=== PATIENT | female | born 1940 | race Caucasian/White ===

== ENCOUNTER → 2017-12-11 | Outpatient (CLI) | payer MEDICARE ==
[~2017-12-11] MED LIST: ACET325 PO; ALBU90OI INH; AMLO5 PO; ASCO500 PO; ASPI81CH PO; ATOR10 PO; BUDE200IP INH; Brovana15 MCG/2 M INH; CALCAVITDA PO; LOSA50 PO; MONT10T PO; PARO20 PO; TIOT18 INH
== END | disposition home or self-care (01) ==
LOC: LAB SHORT 10:30 → LAB EV 10:30
DX: N39.0 Urinary tract infection, site not specified (principal)
CPT/HCPCS: 87077; 87086; 87186

== ENCOUNTER 2019-08-08 04:56 | Inpatient (IN) | payer MEDICARE ==
[~2019-08-08] VITALS: Ht 180.3 cm; Wt 53.2 kg
[2019-08-08 05:39] LABS: BASOPHILS ABSOLUTE AUTO 0.06 K/mm3 (0.00-0.23); BASOPHILS PERCENT AUTO 1 % (0-2); EOSINOPHILS ABSOLUTE AUTO 0.96 K/mm3 (0.00-0.68); EOSINOPHILS PERCENT AUTO 12 % (0-6); Hematocrit 40.8 % (33.0-51.0); Hemoglobin 13.9 g/dL (11.5-16.0); IMMATURE GRAN ABSOLUTE AUTO 0.05 K/mm3 (0.00-0.10); IMMATURE GRAN PERCENT AUTO 1 % (0-1); LYMPHOCYTES ABSOLUTE AUTO 1.26 K/mm3 (0.84-5.20); LYMPHOCYTES PERCENT AUTO 16 % (21-46); MONOCYTES ABSOLUTE AUTO 0.82 K/mm3 (0.16-1.47); MONOCYTES PERCENT AUTO 11 % (4-13); Mean Corpuscular HGB 33.3 pg (26.0-34.0); Mean Corpuscular HGB Conc 34.1 g/dL (31.5-36.5); Mean Corpuscular Volume 98 fL (80-100); Mean Platelet Volume 10.7 fL (9.1-12.4); NEUTROPHILS ABSOLUTE AUTO 4.66 K/mm3 (1.96-9.15); NEUTROPHILS PERCENT AUTO 60 % (41-73); Platelet Count 289 K/mm3 (150-400); RDW Coefficient Variation 13.2 % (11.7-14.2); RDW Standard Deviation 47.7 fL (35.1-46.3); Red Blood Cell Count 4.18 M/mm3 (3.80-5.20); White Blood Cell Count 7.81 K/mm3 (4.00-11.30)
[2019-08-08 05:52] LABS: Alanine Aminotransfer (ALT/SGP 38 U/L (12-78); Albumin, Blood 3.8 g/dL (3.4-5.0); Albumin/Globulin Ratio 1.2 (0.8-1.8); Alk Phos 91 U/L (50-136); Anion Gap 7 mmol/L (6-16); Aspartate Aminotrans (AST/SGOT 51 U/L (12-37); Bilirubin, Total 0.4 mg/dL (0.1-1.0); Blood Urea Nitrogen 11 mg/dL (8-24); Bun/Creatinine Ratio 21.6 (12.0-20.0); CO2, Blood 28 mmol/L (21-32); Calcium, Blood 9.1 mg/dL (8.5-10.1); Chloride, Blood 102 mmol/L (98-108); Creatinine, Blood 0.51 mg/dL (0.40-1.00); Globulin, Blood 3.3 g/dL (2.2-4.0); Glomerular Filtration Rate >60 (60-); Glucose, Blood 130 mg/dL (70-99); Magnesium, Blood 1.8 mg/dL (1.6-2.4); Sodium, Blood 137 mmol/L (136-145); Total Protein, Blood 7.1 g/dL (6.4-8.2); Troponin I <0.015 ng/mL (0.000-0.040)
[2019-08-08] MEDS ORDERED: Atrovent Inha12.9 GM INH (07:00)
[2019-08-08] MEDS ORDERED: BUSP5 PO (07:00)
[2019-08-08] MEDS ORDERED: LUMIGAN2.5 ML BOTHEYES (07:01)
[2019-08-08] MEDS ORDERED: CARV3.125 PO (07:01)
[2019-08-08] MEDS ORDERED: COSOPT PF EYE1 EACH BOTHEYES (07:01)
--- NOTE | 2019-08-08 07:11 | NUR ---
ADMIT NOTE: ASSUMED CARE OF PT @ 0635, RECEVIED REPORT FROM ERIC BERGER. PT ARRIVED TO UNIT VIA STRETCHER. PT WAS ON RA ON ARRIVAL, SPO2 WAS 86%, PT WAS THEN PLACED ON 2L OF O2 VIA NC. PT IS IN AFIB, WITH HR IN THE 80'S.PT HAS A PACEMAKER (L CHEST) PT IS ALERT AND ORIENTEDX3, ABLE TO ANSWER QUESTIONS APPROPRIATLY. PT WAS ORIENTED TO THE ROOM. REPORT GIVEN TO CECILIA BERGER. BED AT LOWEST LEVEL, CALL LIGHT WITHIN REACH
--- NOTE | 2019-08-08 08:00 | NUR ---
ASSUMED CARE PT IS LYING IN BED ON 2L NC. SHE IS ALERT AND ORIENTED X 4. SHE HAS ECTOPY - BIGEMINY RUNS, PVCs, AND IT APPEARS TO HAVE A BBB. SHE HAS A PACEMAKER, BACKUP RATE IS 40. HER SATS ARE HIGH 90'S. SHE DENIES PAIN, SOB, AND NAUSEA. BED IS LOW AND LOCKED. CALL LIGHT WITHIN REACH.
[2019-08-08] MEDS ORDERED: LOSA25 PO (13:47)
[2019-08-08] MEDS ORDERED: BRIMONIDINE TART5 M2 BOTHEYES (13:50)
--- NOTE | 2019-08-08 19:14 | NUR ---
SHIFT SUMMARY PT REMAINS ALERT AND ORIENTED X 4. SHE GOT OFF OXYGEN TODAY, AND IS SATING MID 90'S. SHE IS SLIGHTLY HYPERTENSIVE, BUT STABLE (SEE VS). SHE HAS BEEN EDUCATED ON THE IS, AND FLUTTER VALVE WELL PURSED LIP BREATHING. SHE DEMONSTRATED UNDERSTANDING. HEART HAS BEEN ACTING UP, WITH FREQUENT ECTOPY - OFTEN BIGEMINY PVCs. SHE HAS A RIGHT BUNDLE BRANCH BLOCK UNDERLYING. HER PACEMAKER HAS A BACKUP RATE OF 40 (STATES PT) BUT HAS NOT PACED ONCE, PT'S HR REMAINS IN 90'S. THE SITE OF HER PACEMAKER LOOKS GOOD FROM AN EXTERNAL VIEW. NOT MUCH OF AN APPETITE DUE TO DYSPNEA WITH EXERTION. SHE GOT UP IN ROOM TO USE TOILET AND TO SIT ON CHAIR, AND WAS QUITE DYSPNEIC AFTER JUST A FEW STEPS. HOWEVER, SHE MAINTAINS SATS IN 90'S. BED LOW AND LOCKED. CALL LIGHT WITHIN REACH.
--- NOTE | 2019-08-08 19:30 | NUR ---
INITAL SHIFT ASSESSMENT PT IS ALERT IN ROOM SITTING UP IN BED. APPEARS TO BE COMFORTABLE NOT SOB AT REST. SHE IS DOING PURSED LIP BREATHING AT TIMES WHILE THIS RN IS IN ROOM WITH HER. VITALS ARE STABLE. HER BP HOWEVER IS ELEVATED. WILL CALL MD AND HAVE HER HOME MEDS REVIEWED AND RE-STARTED. PT ON RA. PT REQUESTED TO GET UP TO TOILET AT THIS TIME. SHE WAS ABLE TO WALK WITH MINIMAL ASSISTANCE FROM THIS RN. VERY SOB UPON RETURNING TO BED. 1L N/C REPLACED AND PT RECOVERED WITHIN 5 MIN OXYGEN WAS THEN REMOVED. REVIEWED ALL HOME MEDS WITH PT WHILE SHE WAS RECOVERYING. PT HAS A PACEMAKER IN PLACE TO WHICH SHE STATES HAS A PACER RATE OF 40. PT STATES HEART IS VERY IRREGULAR. PT STATES SHE DOES NOT BELIEVE THER IS A HIGH RATE PACING. SHE ALSO STATES IT IS NOT A DEFIBRILATOR. OVERALL PT IS VERY PLESANT AND COOPERTIVE WITH HER CARE. CALL LIGHT IN REACH. WILL CON'T TO MONITOR AND KEEP PT SAFE T/O REMIANDER OF SHIFT.
[2019-08-08 22:39] LABS: Adenovirus Not Detected (NOT DETECT); Bordetella pertussis Not Detected (NOT DETECT); Chlamydophila pneumoniae Not Detected (NOT DETECT); Coronavirus 229E Not Detected (NOT DETECT); Coronavirus HKU1 Not Detected (NOT DETECT); Coronavirus NL63 Not Detected (NOT DETECT); Coronavirus OC43 Not Detected (NOT DETECT); Human Metapneumovirus Not Detected (NOT DETECT); Human Rhinovirus/Enterovirus Not Detected (NOT DETECT); Influenza A/2009-H1 Not Detected (NOT DETECT); Influenza A/H1 Not Detected (NOT DETECT); Influenza A/H3 Not Detected (NOT DETECT); Influenza B Not Detected (NOT DETECT); Mycoplasma pneumoniae Not Detected (NOT DETECT); Parainfluenza Virus 1 Not Detected (NOT DETECT); Parainfluenza Virus 2 Not Detected (NOT DETECT); Parainfluenza Virus 3 Not Detected (NOT DETECT); Parainfluenza Virus 4 Not Detected (NOT DETECT); Respiratory Syncytial Virus Not Detected (NOT DETECT)
--- NOTE | 2019-08-08 23:37 | NUR ---
SHIFT UPDATE PT CON'T TO BE STABLE. SHE LOOKS VERY CALM AND NO SOB NOTED WHILE RESTING IN BED WATCHING TV. SHE WAS GIVEN HER INHALER AND SOLUMEDROL AT THIS TIME. VITALS ARE STABLE. WILL CON'T TO MONITOR PT AND KEEP SAFE.
[2019-08-09 04:48] LABS: Hematocrit 42.9 % (33.0-51.0); Hemoglobin 14.3 g/dL (11.5-16.0); Mean Corpuscular HGB 32.6 pg (26.0-34.0); Mean Corpuscular HGB Conc 33.3 g/dL (31.5-36.5); Mean Corpuscular Volume 98 fL (80-100); Mean Platelet Volume 10.5 fL (9.1-12.4); Platelet Count 286 K/mm3 (150-400); RDW Coefficient Variation 13.2 % (11.7-14.2); RDW Standard Deviation 47.7 fL (35.1-46.3); Red Blood Cell Count 4.39 M/mm3 (3.80-5.20)
[2019-08-09 05:05] LABS: Alanine Aminotransfer (ALT/SGP 36 U/L (12-78); Albumin, Blood 4.1 g/dL (3.4-5.0); Albumin/Globulin Ratio 1.1 (0.8-1.8); Alk Phos 83 U/L (50-136); Anion Gap 7 mmol/L (6-16); Aspartate Aminotrans (AST/SGOT 30 U/L (12-37); Bilirubin, Total 0.5 mg/dL (0.1-1.0); Blood Urea Nitrogen 11 mg/dL (8-24); Bun/Creatinine Ratio 25.8 (12.0-20.0); CO2, Blood 28 mmol/L (21-32); Calcium, Blood 9.4 mg/dL (8.5-10.1); Chloride, Blood 99 mmol/L (98-108); Creatinine, Blood 0.43 mg/dL (0.40-1.00); Globulin, Blood 3.8 g/dL (2.2-4.0); Glomerular Filtration Rate >60 (60-); Glucose, Blood 124 mg/dL (70-99); Potassium, Blood 4.1 mmol/L (3.5-5.5); Sodium, Blood 134 mmol/L (136-145); Total Protein, Blood 7.9 g/dL (6.4-8.2)
--- NOTE | 2019-08-09 05:55 | NUR ---
SHIFT SUMMARY PT HAS DONE WELL THOUGH THE NIGHT. SHE RESTED FOR A FEW HOURS. THIS AM SHE WAS ABLE TO GET UP TO THE TOILET AGAIN WITH MINIMAL ASSISTANCE. SHE DID GET SOB WITH EXERTION. 1L N/C WAS PLACED ON HER WHILE SHE WAS UP. WHEN SHE RETURNED TO BED SHE RECOVERED QUICKLY AND THEN THE OXYGEN WAS REMOVED. VITALS ARE STABLE NO CHANGES FROM BASELINE. HER BP HOWEVER DOES CON'T TO BE ELEVATED. CALL LIGHT IN REACH BED IN LOW POSITION. WILL CON'T TO MONITOR PT TILL REPORT TO ONCOMING RN.
--- NOTE | 2019-08-09 08:30 | NUR ---
CARE ASSUMED CARE AND REPORT ASSUMED FROM JASMINE BERGER. PT SITTING UPRIGHT IN BED WATCHING TV AND TALKING ON HER CELLPHONE. DENIES PAIN THIS AM. NEEDS 1 PERSON ASSIST TO TOILET SHE IS UNSTEADY ON HER FEET. VOIDED 550 ML THIS AM; BREIF CHANGED. WHEN UP, PT EASILY BECOMES SOB. WEARING 1L NC AND TRIPOD BREATHING. EXPIRATORY WHEEZES IN ALL EDGAR. HR 100, BBB. BP SLIGHTLY ELEVATED; HOME BP MEDS GIVEN. IV SALINE LOCKED. WILL CONTINUE TO MONITOR.
--- NOTE | 2019-08-09 11:41 | NUR ---
REASSESSMENT PT SITTING UPRIGHT IN BED. STATES SHE OCCASSIONALLY GETS CENTRAL CHEST HEAVINESS WHEN SHE HAS DIFFICULTY BREATHING. STEROIDS ADJUSTED PER MD. NO RHYTHM CHANGE; REMAINS IN BBB; HR 100. BP SLIGHTLY ELEVATED; WILL MONITOR. SPO2 94% ON RA AT THIS TIME. PT ABLE TO HAVE CONVERSATION. WHEEZING REMAINS IN ALL EDGAR. WILL CONTINUE TO MONITOR.
--- NOTE | 2019-08-09 17:18 | NUR ---
SHIFT SUMMARY PT HAS BEEN CALM AND COOPERATIVE ENTIRE SHIFT. SHE EASILY BECOMES DYSPNIC WITH EXERTION BUT NEEDS OXYGEN FOR JUST A FEW MINUTES UNTIL SHE RECOVERS TO BASELINE. HAS REMAINED IN NSR WITH BBB, HR 90-100. IV STEROIDS TITRATED DOWN TODAY. FAMILY UPDATED. PT RECEIVED SHOWER AND LINEN CHANGE. WILL GIVE BEDSIDE, HANDOFF REPORT TO MARNIE RN.
--- NOTE | 2019-08-09 20:45 | NUR ---
ASSUMPTION OF CARE: PT AWAKE, A&O. NO COMPLAINTS OF PAIN. PT HAS A BBB WITH OCC PVCS. HAS PACER. PT STATES BACK UP RATE IS 40. LUNG SOUNDS ARE CLEAR, PT STATES SHE DOES HAVE SOME SOB BUT IT IS MILD. DYSPNEA ON EXERTION. PER DAYSHIFT PT DOES WELL IF SHE IS PUT ON 2L NC DURING AMBULATION. RFA PIV IS PATENT AND SL. PT HAS NO COMPLAINTS AT THIS TIME. WILL CONTINUE TO MONITOR.
[2019-08-10 03:48] LABS: BASOPHILS ABSOLUTE AUTO 0.01 K/mm3 (0.00-0.23); BASOPHILS PERCENT AUTO 0 % (0-2); EOSINOPHILS PERCENT AUTO 0 % (0-6); Hematocrit 37.5 % (33.0-51.0); Hemoglobin 12.9 g/dL (11.5-16.0); IMMATURE GRAN PERCENT AUTO 1 % (0-1); LYMPHOCYTES ABSOLUTE AUTO 0.58 K/mm3 (0.84-5.20); LYMPHOCYTES PERCENT AUTO 4 % (21-46); MONOCYTES ABSOLUTE AUTO 0.39 K/mm3 (0.16-1.47); MONOCYTES PERCENT AUTO 3 % (4-13); Mean Corpuscular HGB 33.2 pg (26.0-34.0); Mean Corpuscular HGB Conc 34.4 g/dL (31.5-36.5); Mean Corpuscular Volume 96 fL (80-100); Mean Platelet Volume 10.4 fL (9.1-12.4); NEUTROPHILS PERCENT AUTO 92 % (41-73); Platelet Count 273 K/mm3 (150-400); RDW Coefficient Variation 13.2 % (11.7-14.2); RDW Standard Deviation 46.3 fL (35.1-46.3); Red Blood Cell Count 3.89 M/mm3 (3.80-5.20); White Blood Cell Count 13.48 K/mm3 (4.00-11.30)
[2019-08-10 04:03] LABS: Anion Gap 7 mmol/L (6-16); Blood Urea Nitrogen 13 mg/dL (8-24); Bun/Creatinine Ratio 25.4 (12.0-20.0); CO2, Blood 29 mmol/L (21-32); Calcium, Blood 8.9 mg/dL (8.5-10.1); Chloride, Blood 95 mmol/L (98-108); Creatinine, Blood 0.51 mg/dL (0.40-1.00); Glomerular Filtration Rate >60 (60-); Glucose, Blood 130 mg/dL (70-99); Potassium, Blood 3.6 mmol/L (3.5-5.5); Sodium, Blood 131 mmol/L (136-145)
--- NOTE | 2019-08-10 05:54 | NUR ---
SHIFT SUMMARY: PT IS A&O. SLEPT PART OF SHIFT. NO COMPLAINTS OF PAIN. AFEBRILE. IN BBB WITH OCC PVCS. PT IS PACED WITH A BACKUP RATE OF 40. SBP IN THE 140S, HR IN THE 90S. LUNG SOUNDS ARE CLEAR, SPO2 >90% ON RA. PT DOES BECOME DYSPNEIC WITH EXERTION AND REQUIRES SUPPLEMENTAL O2 VIA NC WHEN SHE IS UP IN ROOM. SHE DOES RECOVER QUICKLY. SKIN IS INTACT. PIV TO RFA PATENT AND SL. WILL PASS REPORT TO ONCOMING SHIFT
--- NOTE | 2019-08-10 09:17 | NUR ---
CARE ASSUMED CARE AND REPORT ASSUMED FROM NICOLAS BERGER. PT SITTING UPRIGHT IN BED. DENIES PAIN. VSS. CURRENTLY IN SR, BBB, HR 100. BP WNL. SPO2 92-95% ON RA. NEEDING TO WEAR 1-2L NC DURING ACTIVITY OR FOLLOWING ACTIVITY FOR SHORT RECOVERY TIME. PT UP TO CHAIR AND TOILET WITH 1 PERSON ASSIST THIS AM. DENIES NAUSEA. LUNG SOUNDS CLEAR THIS AM. AFEBRILE. PERIPHERAL IV REMOVED AND POWER GLIDE BEING INSERTED AT THIS TIME. WILL CONTINUE TO MONITOR.
--- NOTE | 2019-08-10 11:39 | NUR ---
REASSESSMENT PT SITTING UP IN BED WATCHING TV. UP TO TOILET WITH MINIMAL 1 ASSIST. DENIES PAIN AT THIS TIME. VSS. REMAINS IN BBB, HR 80S. BP SLIGHTLY ELEVATED; WILL MONITOR. SPO2 92% ON RA; LUNG SOUNDS CLEAR. PT CONTINUES TO USE 2L NEEDED. AFEBRILE. WILL CONTINUE TO MONITOR.
--- NOTE | 2019-08-10 18:36 | NUR ---
SHIFT SUMMARY VSS ENTIRE SHIFT. PT UP TO CHAIR FOR BREAKFAST AND THEN TO TOILET WITH 1 STANDBY ASSIST. USES 2L NC FOLLOWING ACTIVITY TO IMPROVE HER EXERTIONAL DYSPNEA. PT HAS BEEN IN BBB DURING SHIFT, HR 90-100. STEROIDS TAPERED THIS MORNING. WILL GIVE BEDSIDE, HANDOFF REPORT TO NOC RN.
--- NOTE | 2019-08-10 19:00 | NUR ---
ASSUMED CARE ASSUMED CARE OF PATIENT. AWAKE AND ALERT. COOPERATIVE WITH CARE. REPOSITIONS SELF IN BED WITHOUT DIFFICULTY. DYSPNEA NOTED WITH TALKING/EXERTION. TACHYPNEIC WITH EXERTION. RA SATS STABLE. PT INTERMITTENTLY USES O2 WHEN SOB/DYSPNEIC. DENIES C/O PAIN OR NAUSEA AT THIS TIME. MONITOR SHOWS NSR, RATE 90s. UP TO BR TO VOID WITH STANDBY ASSIST. POWERGLIDE NOTED TO TONI. SEE SHIFT ASSESSMENT FOR FULL ASSESSMENT.
[2019-08-11 04:35] LABS: BASOPHILS ABSOLUTE AUTO 0.02 K/mm3 (0.00-0.23); BASOPHILS PERCENT AUTO 0 % (0-2); EOSINOPHILS PERCENT AUTO 0 % (0-6); Hematocrit 40.9 % (33.0-51.0); Hemoglobin 13.9 g/dL (11.5-16.0); IMMATURE GRAN ABSOLUTE AUTO 0.12 K/mm3 (0.00-0.10); IMMATURE GRAN PERCENT AUTO 1 % (0-1); LYMPHOCYTES ABSOLUTE AUTO 0.85 K/mm3 (0.84-5.20); LYMPHOCYTES PERCENT AUTO 6 % (21-46); MONOCYTES ABSOLUTE AUTO 0.72 K/mm3 (0.16-1.47); MONOCYTES PERCENT AUTO 5 % (4-13); Mean Corpuscular Volume 97 fL (80-100); Mean Platelet Volume 10.7 fL (9.1-12.4); NEUTROPHILS ABSOLUTE AUTO 12.92 K/mm3 (1.96-9.15); NEUTROPHILS PERCENT AUTO 88 % (41-73); Platelet Count 320 K/mm3 (150-400); RDW Coefficient Variation 13.3 % (11.7-14.2); RDW Standard Deviation 47.3 fL (35.1-46.3); Red Blood Cell Count 4.21 M/mm3 (3.80-5.20); White Blood Cell Count 14.63 K/mm3 (4.00-11.30)
[2019-08-11 04:55] LABS: Anion Gap 8 mmol/L (6-16); Blood Urea Nitrogen 13 mg/dL (8-24); Bun/Creatinine Ratio 24.3 (12.0-20.0); CO2, Blood 31 mmol/L (21-32); Calcium, Blood 9.2 mg/dL (8.5-10.1); Chloride, Blood 94 mmol/L (98-108); Creatinine, Blood 0.54 mg/dL (0.40-1.00); Glomerular Filtration Rate >60 (60-); Glucose, Blood 125 mg/dL (70-99); Potassium, Blood 3.5 mmol/L (3.5-5.5); Sodium, Blood 133 mmol/L (136-145)
--- NOTE | 2019-08-11 06:58 | NUR ---
SHIFT SUMMARY NO ACUTE CHANGES DURING NOC. SLEPT WELL WHEN UNDISTURBED. UP TO BATHROOM WITH STAND-BY ASSIST. ON RA WHEN AWAKE AND THEN 2L NC WHEN ASLEEP. SATS STABLE T/O NOC. SOB WITH MINIMAL EXERTION. USING INCENTIVE SPIROMETER AND FLUTTER VALVE. OCCASIONAL LOOSE COUGH. VSS. VOIDING WITHOUT DIFFICULTY. DENIES C/O PAIN OR DISCOMFORT. WILL REPORT TO DAY SHIFT RN WHEN AVAILABLE.
--- NOTE | 2019-08-11 08:30 | NUR ---
ASSESSMENT- PT AWAKE, ALERT, COOPERATIVE. DENIES ANY PAIN. STATES DOES FEEL BREATHING IS "TIGHTER" TODAY. LUNGS WITH FEW WHEEZES LEFT SIDE. OXYGEN SATURATIONS STABLE ON ROOM AIR. USING PEP VALVE FOR EXERCISE. LEFT UA MIDLINE CATH INTACT. ABLE TO POSITION SELF IN BED, MOVES WELL. DOES BECOME DYSPNEIC WITH ANY EXERTION.
--- NOTE | 2019-08-11 13:30 | NUR ---
VSS. APPETITE MINIMAL. STATES BREATHING HAS IMPROVED. ON ROOM AIR, OXYGEN SATURATIONS STABLE.
--- NOTE | 2019-08-11 18:21 | NUR ---
PT UP TO CHAIR, OXYGEN SATURATIONS STABLE AT REST, DOES STILL BECOME DYSPNEIC WITH ANY EXERTION, OXYGEN SATURATIONS REMAINED AT 94%. SR. PCU STATUS, REPORT CALLED TO JOHAN BERGER.
--- NOTE | 2019-08-11 23:36 | NUR ---
Assumed Care Report from CELINE Fermin and care assumed by this RN at approx 1900. Pt lying in bed, conversing appropriately, breathing is even and unlabored at rest. Pt able to speak in full sentences on RA without becoming dyspneic. Pt requires 1L NC with ambulation and sleep d/t desaturations per report. See shift assessment for detailed systems assessment. pt is fully alert and oriented, conversing appropriately, expresses needs with call light, compliant with care. VSS. No acute concerns to note at start of shift. Will continue to monitor.
[2019-08-12 04:43] LABS: BASOPHILS ABSOLUTE AUTO 0.02 K/mm3 (0.00-0.23); BASOPHILS PERCENT AUTO 0 % (0-2); EOSINOPHILS ABSOLUTE AUTO 0.01 K/mm3 (0.00-0.68); EOSINOPHILS PERCENT AUTO 0 % (0-6); Hematocrit 38.3 % (33.0-51.0); Hemoglobin 13.3 g/dL (11.5-16.0); IMMATURE GRAN ABSOLUTE AUTO 0.09 K/mm3 (0.00-0.10); IMMATURE GRAN PERCENT AUTO 1 % (0-1); LYMPHOCYTES ABSOLUTE AUTO 1.43 K/mm3 (0.84-5.20); LYMPHOCYTES PERCENT AUTO 12 % (21-46); MONOCYTES ABSOLUTE AUTO 1.44 K/mm3 (0.16-1.47); MONOCYTES PERCENT AUTO 12 % (4-13); Mean Corpuscular HGB 33.1 pg (26.0-34.0); Mean Corpuscular HGB Conc 34.7 g/dL (31.5-36.5); Mean Corpuscular Volume 95 fL (80-100); NEUTROPHILS ABSOLUTE AUTO 8.93 K/mm3 (1.96-9.15); NEUTROPHILS PERCENT AUTO 75 % (41-73); Platelet Count 276 K/mm3 (150-400); RDW Coefficient Variation 12.9 % (11.7-14.2); RDW Standard Deviation 45.7 fL (35.1-46.3); Red Blood Cell Count 4.02 M/mm3 (3.80-5.20); White Blood Cell Count 11.92 K/mm3 (4.00-11.30)
--- NOTE | 2019-08-12 04:54 | NUR ---
Shift Summary Pt with no acute changes overnight. Breathing is even and unlabored on RA at rest. Pt becomes quite dyspneic with any exertion - desaturations noted down to low 80's with ambulation to bathroom and respiration rate increases to 25-28 with pursed lip breathing. it takes pt approx 2-4 minutes to recover respiration rate and approx 30 seconds to recover oxygen saturations. Pt states "i feel almost back to normal". 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 SBA to bathroom for voiding, TONI powerglide patent and draws for morning labs. No acute concerns to note overnight, will continue to montior.
[2019-08-12] MEDS ORDERED: AIRDUO RESPICL1 EAC2 INH (12:09)
[2019-08-12] MEDS ORDERED: GUAI600T33 PO (12:09)
[2019-08-12] MEDS ORDERED: LEVO750 PO (12:11)
[2019-08-12] MEDS ORDERED: Prednisone10 MG PO (12:17)
--- NOTE | 2019-08-12 13:40 | NUR ---
PT D/C WITH ALL BELONGINGS. PAPA GLIDE D/C INTACT. PT EXPRESSED UNDERSTANDING OF DC TEACHING AND NEW MEDICATIONS. PT AWARE THAT RN WAS CALLED INTO HER PHARMACY. PT DENIES FURTHER NEEDS PRIOR TO D/C AND WAS TAKEN OUT BY PCT VIA WHEELCHAIR
== END 2019-08-12 13:44 | disposition home or self-care (01) | DRG 189 ==
LOC: ER 04:56 → ICUE 06:00 → ICUW 06:00 → ICUE 06:29 → PCU 08-11 18:53
PROVIDERS: Emergency Medicine; Family Medicine; ADMIT Internal Medicine
DX: J96.01 Acute respiratory failure with hypoxia (principal); J44.1 Chronic obstructive pulmonary disease with (acute) exacerbation; I44.2 Atrioventricular block, complete; E87.1 Hypo-osmolality and hyponatremia; D72.829 Elevated white blood cell count, unspecified; F41.9 Anxiety disorder, unspecified; E78.5 Hyperlipidemia, unspecified; I10 Essential (primary) hypertension; F32.9 Major depressive disorder, single episode, unspecified; Z95.0 Presence of cardiac pacemaker; Z87.891 Personal history of nicotine dependence; Z79.82 Long term (current) use of aspirin; Z79.51 Long term (current) use of inhaled steroids; Z79.899 Other long term (current) drug therapy
CPT/HCPCS: 0099U; 36415; 71045; 71046; 80048; 80053; 83735; 83880; 84484; 85025; 85027; 85379; 87070; 87205; 93005; 93010; 94640; 94644; 94760; 94761; 99285-25; J1650; J2930; J7512; U0003

== ENCOUNTER 2020-01-10 12:39 | Emergency (ER) | payer MEDICARE ==
[~2020-01-10] VITALS: Ht 154.9 cm; Wt 53.5 kg
[~2020-01-10 12:39] MED LIST changes: -K-Dur 20 meq T20 MEQ PO; -Lasix20 MG PO
[2020-01-10 14:28] LABS: Alanine Aminotransfer (ALT/SGP 39 U/L (12-78); Albumin, Blood 3.6 g/dL (3.4-5.0); Albumin/Globulin Ratio 1.1 (0.8-1.8); Alk Phos 132 U/L (50-136); Anion Gap 7 mmol/L (6-16); Aspartate Aminotrans (AST/SGOT 18 U/L (12-37); Bilirubin, Total 0.5 mg/dL (0.1-1.0); Blood Urea Nitrogen 6 mg/dL (8-24); CO2, Blood 31 mmol/L (21-32); Calcium, Blood 8.7 mg/dL (8.5-10.1); Chloride, Blood 98 mmol/L (98-108); Creatinine, Blood 0.46 mg/dL (0.40-1.00); Globulin, Blood 3.2 g/dL (2.2-4.0); Glomerular Filtration Rate >60 (60-); Glucose, Blood 105 mg/dL (70-99); Potassium, Blood 3.6 mmol/L (3.5-5.5); Sodium, Blood 136 mmol/L (136-145); Total Protein, Blood 6.8 g/dL (6.4-8.2)
[2020-01-10] MEDS ORDERED: K-Dur 20 meq T20 MEQ PO (15:57)
[2020-01-10] MEDS ORDERED: Lasix20 MG PO (15:57)
== END 2020-01-10 16:10 | disposition home or self-care (01) ==
LOC: ER 12:39
PROVIDERS: Physician Assistant
DX: I11.0 Hypertensive heart disease with heart failure (principal); J44.9 Chronic obstructive pulmonary disease, unspecified; F41.9 Anxiety disorder, unspecified; E78.5 Hyperlipidemia, unspecified; F32.9 Major depressive disorder, single episode, unspecified; Z95.0 Presence of cardiac pacemaker; Z79.899 Other long term (current) drug therapy; Z87.891 Personal history of nicotine dependence
CPT/HCPCS: 71260; 74177; 80053; 84484; 93296; 99284-25; Q9967

== ENCOUNTER → 2020-01-10 | Outpatient (CLI) | payer MEDICARE ==
[~2020-01-10] MED LIST changes: +AIRDUO RESPICL1 EAC4 INH; +Atrovent Inha12.9 GM INH; +BRIMONIDINE TART5 M2 BOTHEYES; +BUSP5 PO; +Bisoprolol Fumar5 MG PO; +C COMPLEX1000 MG PO; -CALCAVITDA PO; +CARV3.125 PO; +COSOPT PF EYE1 EACH BOTHEYES; +DORZOLAMIDE 2%10 ML TOP; +GUAI600T33 PO; +K-Dur 20 meq T20 MEQ PO; +LEVFLO500 PO; +LEVO750 PO; +LOSA25 PO; +LUMIGAN2.5 ML BOTHEYES; +Lasix20 MG PO; +OYSTER SHELL 51 EACH PO; +Prednisone10 MG PO; +TIMDOROPSO BOTHEYES
[2020-01-10 10:30] LABS: BASOPHILS ABSOLUTE AUTO 0.06 K/mm3 (0.00-0.23); BASOPHILS PERCENT AUTO 0 % (0-2); EOSINOPHILS ABSOLUTE AUTO 0.02 K/mm3 (0.00-0.68); EOSINOPHILS PERCENT AUTO 0 % (0-6); Hematocrit 32.6 % (33.0-51.0); Hemoglobin 10.2 g/dL (11.5-16.0); IMMATURE GRAN ABSOLUTE AUTO 0.19 K/mm3 (0.00-0.10); IMMATURE GRAN PERCENT AUTO 1 % (0-1); LYMPHOCYTES PERCENT AUTO 5 % (21-46); MONOCYTES ABSOLUTE AUTO 1.09 K/mm3 (0.16-1.47); MONOCYTES PERCENT AUTO 7 % (4-13); Mean Corpuscular HGB 32.9 pg (26.0-34.0); Mean Corpuscular HGB Conc 31.3 g/dL (31.5-36.5); Mean Corpuscular Volume 105 fL (80-100); Mean Platelet Volume 9.7 fL (9.1-12.4); NEUTROPHILS ABSOLUTE AUTO 13.06 K/mm3 (1.96-9.15); NEUTROPHILS PERCENT AUTO 86 % (41-73); Platelet Count 431 K/mm3 (150-400); RDW Standard Deviation 76.4 fL (35.1-46.3); White Blood Cell Count 15.12 K/mm3 (4.00-11.30)
== END | disposition home or self-care (01) ==
LOC: LAB 09:59 → LAB SHORT 09:59
PROVIDERS: Registered Nurse Oncology
DX: C34.90 Malignant neoplasm of unspecified part of unspecified bronchus or lung (principal); C77.9 Secondary and unspecified malignant neoplasm of lymph node, unspecified; R06.00 Dyspnea, unspecified
CPT/HCPCS: 83880; 85025

== ENCOUNTER → 2020-07-03 | Outpatient (CLI) | payer MEDICARE ==
[~2020-07-03] MED LIST changes: +K-Dur 20 meq T20 MEQ PO; +Lasix20 MG PO
== END | disposition home or self-care (01) ==
LOC: LAB SHORT 13:29 → PLD 13:29
DX: L30.9 Dermatitis, unspecified (principal)
CPT/HCPCS: 88305; 88313

== ENCOUNTER 2021-11-17 08:55 | Emergency (ER) | payer MEDICARE ==
[~2021-11-17] VITALS: Ht 154.9 cm; Wt 57.1 kg
[2021-11-17] MEDS ORDERED: BUSPIRONE HCL7.5 M1 PO (09:48)
[2021-11-17] MEDS ORDERED: FURO20 PO (09:48)
[2021-11-17] MEDS ORDERED: Bisoprolol Fumar5 MG PO (09:48)
[2021-11-17] MEDS ORDERED: POTA10T PO (09:48)
[2021-11-17] MEDS ORDERED: AMLO5 PO (09:48)
[2021-11-17] MEDS ORDERED: SPIR25 PO (09:49)
[2021-11-17] MEDS ORDERED: MONT10T PO (09:49)
[2021-11-17] MEDS ORDERED: PARO20 PO (09:49)
[2021-11-17] MEDS ORDERED: ATOR10 PO (09:49)
[2021-11-17] MEDS ORDERED: WARF4 PO (09:50)
[2021-11-17] MEDS ORDERED: DORZOPSO BOTHEYES (09:50)
[2021-11-17] MEDS ORDERED: LUMIGAN2.5 ML BOTHEYES (09:50)
[2021-11-17] MEDS ORDERED: CALCIUM 600-VI1 EAC3 PO (09:51)
[2021-11-17] MEDS ORDERED: C COMPLEX1000 M1 PO (09:52)
[2021-11-17] MEDS ORDERED: MULVITA PO (09:52)
[2021-11-17 13:25] LABS: BASOPHILS ABSOLUTE AUTO 0.03 K/mm3 (0.00-0.23); BASOPHILS PERCENT AUTO 0 % (0-2); EOSINOPHILS ABSOLUTE AUTO 0.05 K/mm3 (0.00-0.68); EOSINOPHILS PERCENT AUTO 1 % (0-6); Hematocrit 33.2 % (33.0-51.0); Hemoglobin 11.4 g/dL (11.5-16.0); IMMATURE GRAN ABSOLUTE AUTO 0.03 K/mm3 (0.00-0.10); IMMATURE GRAN PERCENT AUTO 0 % (0-1); LYMPHOCYTES ABSOLUTE AUTO 0.91 K/mm3 (0.84-5.20); LYMPHOCYTES PERCENT AUTO 13 % (21-46); MONOCYTES ABSOLUTE AUTO 0.48 K/mm3 (0.16-1.47); MONOCYTES PERCENT AUTO 7 % (4-13); Mean Corpuscular HGB 35.3 pg (26.0-34.0); Mean Corpuscular HGB Conc 34.3 g/dL (31.5-36.5); Mean Corpuscular Volume 103 fL (80-100); Mean Platelet Volume 10.2 fL (9.1-12.4); NEUTROPHILS ABSOLUTE AUTO 5.62 K/mm3 (1.96-9.15); NEUTROPHILS PERCENT AUTO 79 % (41-73); Platelet Count 212 K/mm3 (150-400); RDW Standard Deviation 53.3 fL (35.1-46.3); Red Blood Cell Count 3.23 M/mm3 (3.80-5.20); White Blood Cell Count 7.12 K/mm3 (4.00-11.30)
[2021-11-17 13:40] LABS: International Normalized Ratio 2.65; Prothrombin Time Results 26.1 Sec (9.7-11.5)
[2021-11-17 13:41] LABS: Bun/Creatinine Ratio 17.5 (12.0-20.0); Creatinine, Blood 0.63 mg/dL (0.40-1.00); Potassium, Blood 4.6 mmol/L (3.5-5.5)
[2021-11-17] MEDS ORDERED: GABA300 PO (13:43)
[2021-11-17] MEDS ORDERED: OXAYDO5 M1 PO (13:43)
== END 2021-11-17 14:12 | disposition home or self-care (01) ==
LOC: ER 08:55
PROVIDERS: Student in an Organized Health Care Education/Training Program
DX: M48.061 Spinal stenosis, lumbar region without neurogenic claudication (principal); R33.9 Retention of urine, unspecified; J44.9 Chronic obstructive pulmonary disease, unspecified; E78.5 Hyperlipidemia, unspecified; I10 Essential (primary) hypertension; Z95.0 Presence of cardiac pacemaker; Z87.891 Personal history of nicotine dependence; Z88.8 Allergy status to other drugs, medicaments and biological substances; Z79.899 Other long term (current) drug therapy; Z79.01 Long term (current) use of anticoagulants
CPT/HCPCS: 36415; 51798; 72131; 80048; 85025; 85610; 85730; 86850; 86900; 86901; A9270; J1170; J7512

== ENCOUNTER → 2023-01-08 | Outpatient (CLI) | payer MEDICARE ==
[~2023-01-08] MED LIST changes: +AMLODIPINE BES2.5 MG; +ATORVASTATIN 10 MG T; +AZIT250 PO; +BUSPIRONE HCL7.5 M1 PO; +BUSPIRONE HCL7.5 M6; +C COMPLEX1000 M1 PO; +CALCIUM 600-VI1 EAC3 PO; +DORZOPSO BOTHEYES; +FURO20 PO; +FUROSEMIDE20 MG; +GABA300 PO; +JANTOVEN3 M2; +MONTELUKAST; +MULVITA PO; +NEURONTIN300 MG; +OXAYDO5 M1 PO; +PAXIL40 M1; +POTA10T PO; +PRED20 PO; +Potassium Chlo20 ME1; +SPIR25 PO; +SPIRONOLACTONE25 MG; +WARF4 PO
== END | disposition home or self-care (01) ==
LOC: LAB SHORT 15:54 → LAB 15:54
DX: N39.0 Urinary tract infection, site not specified (principal)
CPT/HCPCS: 87086

== ENCOUNTER 2023-02-04 20:22 | Emergency (ER) | payer MEDICARE ==
[~2023-02-04] VITALS: Ht 162.6 cm; Wt 59.0 kg
[2023-02-05 00:19] VITALS: BP 144/87
[2023-02-05] MEDS ORDERED: ACET500 PO (00:19)
== END 2023-02-05 00:35 | disposition home or self-care (01) ==
LOC: ER 20:22
DX: M79.631 Pain in right forearm (principal); J44.9 Chronic obstructive pulmonary disease, unspecified; I10 Essential (primary) hypertension; E78.5 Hyperlipidemia, unspecified; Z87.891 Personal history of nicotine dependence; Z79.01 Long term (current) use of anticoagulants; Z79.899 Other long term (current) drug therapy; Z91.81 History of falling
CPT/HCPCS: 29125; 70450; 73030; 73090; 99284-25

== ENCOUNTER → 2023-02-18 | Outpatient (CLI) | payer MEDICARE ==
[~2023-02-18] MED LIST changes: +ACET500 PO
== END | disposition home or self-care (01) ==
LOC: LAB SHORT 09:34 → LAB 09:34
DX: N39.0 Urinary tract infection, site not specified (principal)
CPT/HCPCS: 87077; 87086; 87186

== ENCOUNTER → 2023-03-20 | Outpatient (CLI) | payer MEDICARE | LOC: LAB 09:25 → LAB SHORT 09:25 | DX: N30.90 Cystitis, unspecified without hematuria (principal) | CPT/HCPCS: 87086 ==

== ENCOUNTER 2023-06-02 03:26 | Inpatient (IN) | payer MEDICARE ==
[~2023-06-02] VITALS: Ht 152.4 cm; Wt 60.6 kg
[~2023-06-02 03:26] MED LIST changes: -BUSPIRONE HCL7.5 M6; +BUSPIRONE HCL7.5 M6 PO; -FUROSEMIDE20 MG; +FUROSEMIDE20 MG PO; -JANTOVEN3 M2; +JANTOVEN3 M2 PO; -NEURONTIN300 MG; +NEURONTIN300 MG PO; -Potassium Chlo20 ME1; +Potassium Chlo20 ME1 PO; -SPIRONOLACTONE25 MG; +SPIRONOLACTONE25 MG PO
[2023-06-02 03:45] LABS: BASOPHILS ABSOLUTE AUTO 0.05 K/mm3 (0.00-0.23); BASOPHILS PERCENT AUTO 0 % (0-2); EOSINOPHILS PERCENT AUTO 0 % (0-6); Hematocrit 34.3 % (33.0-51.0); Hemoglobin 11.3 g/dL (11.5-16.0); IMMATURE GRAN ABSOLUTE AUTO 0.16 K/mm3 (0.00-0.10); IMMATURE GRAN PERCENT AUTO 1 % (0-1); LYMPHOCYTES ABSOLUTE AUTO 0.31 K/mm3 (0.84-5.20); LYMPHOCYTES PERCENT AUTO 2 % (21-46); MONOCYTES ABSOLUTE AUTO 0.99 K/mm3 (0.16-1.47); MONOCYTES PERCENT AUTO 6 % (4-13); Mean Corpuscular HGB 33.6 pg (26.0-34.0); Mean Corpuscular HGB Conc 32.9 g/dL (31.5-36.5); Mean Corpuscular Volume 102 fL (80-100); Mean Platelet Volume 10.4 fL (9.1-12.4); NEUTROPHILS ABSOLUTE AUTO 14.87 K/mm3 (1.96-9.15); NEUTROPHILS PERCENT AUTO 91 % (41-73); Platelet Count 178 K/mm3 (150-400); RDW Coefficient Variation 13.3 % (11.7-14.2); RDW Standard Deviation 49.8 fL (35.1-46.3); Red Blood Cell Count 3.36 M/mm3 (3.80-5.20); White Blood Cell Count 16.38 K/mm3 (4.00-11.30)
[2023-06-02 04:09] LABS: Albumin, Blood 3.6 g/dL (3.4-5.0); Albumin/Globulin Ratio 1.2 (0.8-1.8); Bilirubin, Total 0.8 mg/dL (0.1-1.0); Bun/Creatinine Ratio 31.1 (12.0-20.0); Calcium, Blood 9.1 mg/dL (8.5-10.1); Creatinine, Blood 0.77 mg/dL (0.40-1.00); Globulin, Blood 3.1 g/dL (2.2-4.0); Potassium, Blood 4.1 mmol/L (3.5-5.5); Total Protein, Blood 6.7 g/dL (6.4-8.2)
[2023-06-02 04:15] LABS: Calcium, Ionized (POC) 0.98 mmol/L (1.10-1.46); Chloride (POC) 100 mmol/L (98-108); Creatinine (POC) 0.7 mg/dL (0.6-1.0); Glucose (ISTAT POC) 127 mg/dL (70-99); Hemoglobin (POC) 11.6 g/dL (12.0-16.0); Potassium (POC) 3.6 mmol/L (3.5-5.5); Sodium (POC) 133 mmol/L (135-148); Total CO2 (POC) 21 mmol/L (21-32)
[2023-06-02 04:22] LABS: Influenza A, PCR NEGATIVE (NEGATIVE); Influenza B, PCR NEGATIVE (NEGATIVE); Resp Syncytial Virus, PCR NEGATIVE (NEGATIVE); SARS-Cov-2 (COVID-19) PCR, MMC NEGATIVE (NEGATIVE)
[2023-06-02 04:26] LABS: International Normalized Ratio 2.68; Prothrombin Time Results 26.6 Sec (9.7-11.5)
[2023-06-02] MEDS ORDERED: Cefepime HCl 2,000 MG in NS 100 ML IV ONE (04:45)
[2023-06-02] MEDS ORDERED: NS 1,000 ML IV SCH ×2 (04:45→19:20)
[2023-06-02] MEDS ORDERED: Bisoprolol Fumar5 MG PO (04:58)
[2023-06-02] MEDS ORDERED: CYMBALTA30 M2 PO (04:59)
[2023-06-02 06:27] LABS: Source, Urine Clean Catch
[2023-06-02 06:29] LABS: Appearance, Urine Hazy (Clear); Bilirubin, Urine Neg (Neg); Blood, Urine 4+ (Neg); Color, Urine Yellow (P-Yellow); Glucose Qualitative, Urine Neg (Neg); Ketones, Urine 1+ (Neg); Leukocyte Esterase, Urine 3+ (Neg); Nitrite, Urine Pos (Neg); Protein, Urine 3+ (Neg); Urobilinogen, Urine NORM (Normal)
[2023-06-02 06:46] LABS: Bacteria Many /hpf; Squamous Epithelial Cells Not Seen /hpf (Few); White Blood Cells, Urine TNTC /hpf (0-5)
[2023-06-02] MEDS ORDERED: Ondansetron 4 MG TAB PO PRN (09:05)
[2023-06-02] MEDS ORDERED: FLU VACC QS2023-24(6MOS UP)/PF 60 MCG/0.5 ML SYRINGE IM PRN (09:05)
[2023-06-02] MEDS ORDERED: Acetaminophen 325 MG TABLET PO PRN (09:10)
[2023-06-02] MEDS ORDERED: ALPR.25 PO (09:41)
[2023-06-02] MEDS ORDERED: ALPRAZolam 0.25 MG Tab PO PRN (09:45)
[2023-06-02] MEDS ORDERED: Albuterol 2.5 MG/3 ML VIAL INH SCH ×2 (09:55→11:30)
[2023-06-02 13:21] VITALS: BP 153/81
[2023-06-02] MEDS ORDERED: ATOR10 PO (13:29)
[2023-06-02] MEDS ORDERED: CYMBALTA60 M1 PO (13:31)
[2023-06-02] MEDS ORDERED: MONT10T PO (13:33)
[2023-06-02] MEDS ORDERED: WARF3 PO (13:37)
[2023-06-02] MEDS ORDERED: TIMDOROPSO BOTHEYES (13:37)
[2023-06-02] MEDS ORDERED: Brovana15 MCG/2 M INH (13:38)
[2023-06-02] MEDS ORDERED: Alphagan P5 ML BOTHEYES (13:38)
[2023-06-02] MEDS ORDERED: LATA.005SO BOTHEYES (13:38)
[2023-06-02] MEDS ORDERED: BUDESONIDE INH (13:39)
[2023-06-02] MEDS ORDERED: Gabapentin 300 MG Cap PO SCH (14:00)
--- NOTE | 2023-06-02 14:00 | NUR ---
*LATE ENTRY* ADMIT NOTE- CALLED DR WOOD- PT WAS C/O CP UPON ARRIVAL TO THE ROOM THAT RESOLVED WITH POSITION CHANGE AT THAT TIME. AFTER ADMIT ASSESSMENT WAS COMPLETED THE PT REQUESTED WATER. PROVIDED HER WITH WATER. SHORTLY AFTER THE PT BEGAN TO VOMIT AND STATED SHE IS HAVING CP. DR WOOD CAME TO THE BEDSIDE TO ASSESS. STAT TROPONINS, EKG AND TELE WERE ORDERED. PT HAS A PACER. SINUS RYTHM WITH BBB IN THE 80'S. NO PACER SPIKES SEEN ON TELE.
[2023-06-02 15:21] VITALS: BP 146/84
[2023-06-02] MEDS ORDERED: ARFORMOTEROL 15 MCG/2 ML INH SCH (16:15)
[2023-06-02] MEDS ORDERED: Cefepime HCl 2,000 MG in NS 100 ML IV SCH (17:00)
[2023-06-02] MEDS ORDERED: Warfarin Sodium 1 MG Tab PO ONE (18:00)
[2023-06-02] MEDS ORDERED: NS 250 ML IV PRN (18:30)
[2023-06-02 19:20] VITALS: BP 118/76
--- NOTE | 2023-06-02 20:03 | NUR ---
SHIFT SUMMARY- CALLED DR WOOD AT THE END OF THE SHIFT. PER THE PT FAMILY THE PT WAS ADMITTED FOR IVF AND ABX. CALLED TO CLARIFY AND RECIEVED AN ORDER FOR 1 L NS AT 150ML/HR. BEDSIDE REPORT COMPLETED WITH NIGHT RN. PT ABX WERE RUNNING AT THAT TIME. PT IN BED, DAUGHTER AT THE BEDSIDE, NO S&S OF DISTRESS.
[2023-06-02] MEDS ORDERED: Metoprolol Succinate 50 MG TABCR PO SCH (21:00)
[2023-06-02] MEDS ORDERED: BusPIRone HCl 5 MG Tab PO SCH (21:00)
[2023-06-02] MEDS ORDERED: Montelukast Sodium 10 MG Tab PO SCH (21:00)
[2023-06-02] MEDS ORDERED: DULoxetine HCL 30 MG Cap DR PO SCH (21:00)
[2023-06-03 02:32] VITALS: BP 138/90
--- NOTE | 2023-06-03 03:52 | NUR ---
SHIFT SUMMARY PT A&O X4, CALM AND COOPERATIVE WITH CARE. 1P ASSIST TO BSC WITH FWW. PT DENIES ANY CP OR PRESSURE THIS SHIFT. NO N/V. TELEMETRY: SR @ 75. PT CURRENTLY ON 3L O2 VIA NC. PT SLEEPING WELL T/O THE NIGHT. AWAKENS TO VERBAL STIMULI. DENIES ANY NEEDS. BED KEPT IN LOWEST POSIITON WITH CALL LIGHT WITHIN REACH. PT CALLS APPROPRAIETLY.
[2023-06-03 05:56] LABS: BASOPHILS ABSOLUTE AUTO 0.04 K/mm3 (0.00-0.23); BASOPHILS PERCENT AUTO 0 % (0-2); EOSINOPHILS ABSOLUTE AUTO 0.05 K/mm3 (0.00-0.68); EOSINOPHILS PERCENT AUTO 0 % (0-6); Hematocrit 30.1 % (33.0-51.0); Hemoglobin 10.1 g/dL (11.5-16.0); IMMATURE GRAN ABSOLUTE AUTO 0.17 K/mm3 (0.00-0.10); IMMATURE GRAN PERCENT AUTO 1 % (0-1); LYMPHOCYTES ABSOLUTE AUTO 1.04 K/mm3 (0.84-5.20); LYMPHOCYTES PERCENT AUTO 6 % (21-46); MONOCYTES ABSOLUTE AUTO 1.29 K/mm3 (0.16-1.47); MONOCYTES PERCENT AUTO 7 % (4-13); Mean Corpuscular HGB 33.8 pg (26.0-34.0); Mean Corpuscular HGB Conc 33.6 g/dL (31.5-36.5); Mean Corpuscular Volume 101 fL (80-100); Mean Platelet Volume 10.7 fL (9.1-12.4); NEUTROPHILS ABSOLUTE AUTO 15.38 K/mm3 (1.96-9.15); NEUTROPHILS PERCENT AUTO 86 % (41-73); Platelet Count 154 K/mm3 (150-400); RDW Coefficient Variation 13.4 % (11.7-14.2); RDW Standard Deviation 49.3 fL (35.1-46.3); Red Blood Cell Count 2.99 M/mm3 (3.80-5.20); White Blood Cell Count 17.97 K/mm3 (4.00-11.30)
[2023-06-03 06:15] LABS: International Normalized Ratio 2.82; Prothrombin Time Results 27.9 Sec (9.7-11.5)
[2023-06-03 06:21] LABS: Albumin, Blood 2.9 g/dL (3.4-5.0); Albumin/Globulin Ratio 0.9 (0.8-1.8); Bilirubin, Total 0.7 mg/dL (0.1-1.0); Bun/Creatinine Ratio 24.6 (12.0-20.0); Calcium, Blood 8.6 mg/dL (8.5-10.1); Creatinine, Blood 0.73 mg/dL (0.40-1.00); Globulin, Blood 3.1 g/dL (2.2-4.0); Magnesium, Blood 1.7 mg/dL (1.6-2.4); Potassium, Blood 3.5 mmol/L (3.5-5.5)
[2023-06-03 07:22] VITALS: BP 129/75
[2023-06-03] MEDS ORDERED: Atorvastatin 10 MG Tab PO SCH (09:00)
[2023-06-03] MEDS ORDERED: Warfarin Sodium 5 MG Tab PO SCH (09:00)
[2023-06-03] MEDS ORDERED: Brimonidine Tartrate 0.2% Opth 5 ml BOTHEYES SCH (09:00)
[2023-06-03] MEDS ORDERED: Dorzolamide/Timolol Opth Soln 10 ML BOTHEYES SCH (09:00)
[2023-06-03] MEDS ORDERED: Furosemide 20 MG Tab PO SCH (09:00)
[2023-06-03] MEDS ORDERED: Potassium Chloride 20 MEQ TabCR PO SCH (09:00)
[2023-06-03] MEDS ORDERED: Budesonide 0.5 MG/2 ML RESP INH SCH (09:45)
[2023-06-03] MEDS ORDERED: SPIRIVA RESPIMAT4 G3 INH (13:11)
[2023-06-03 15:16] VITALS: BP 105/65
--- NOTE | 2023-06-03 16:57 | NUR ---
SHIFT SUMMARY PT AOX4, 1 ASSIST TO THE BSC. PT STATES SHE FEELS STRONGER TODAY THAN YESTERDAY. FAMILY AT THE BS MOST OF THE SHIFT. HOME MEDICATIONS STARTED PER THE EMAR. NO OTHER COMPLAINTS BY THE PT. SHE IS PLEASANT AND COOPERATIVE, CALLS AND MAKES HER NEEDS KNOWN. CALL LIGHT WITHIN REACH, BED IN THE LOWEST POSITION. WILL REPORT TO ONCOMING NURSE.
[2023-06-03] MEDS ORDERED: Warfarin Sodium 2 MG Tab PO SCH (18:00)
[2023-06-03 20:06] VITALS: BP 114/74
[2023-06-03] MEDS ORDERED: Latanoprost 0.005% Opth Soln 2.5 ML BOTHEYES SCH (21:00)
[2023-06-04 02:11] VITALS: BP 151/88
--- NOTE | 2023-06-04 04:28 | NUR ---
Patient is an 83 year old female admitted with sepsis related to UTI. She also has diagnosis of Afib, anxiety, COPD, glaucoma, diastolic heart failure, and respiratory failure. She is alert and oriented x 4. Respirations are regular and unlabored. Patient is on oxgen per NC at 3L. She is on tele in a sinus rhythm at 66 with a BBB. She denies pain and has rested throughout this shift. Side rails up x 2 with call light in reach. Bed in low position.
[2023-06-04 05:39] LABS: BASOPHILS ABSOLUTE AUTO 0.04 K/mm3 (0.00-0.23); BASOPHILS PERCENT AUTO 0 % (0-2); EOSINOPHILS ABSOLUTE AUTO 0.22 K/mm3 (0.00-0.68); EOSINOPHILS PERCENT AUTO 2 % (0-6); Hematocrit 30.9 % (33.0-51.0); Hemoglobin 10.5 g/dL (11.5-16.0); IMMATURE GRAN ABSOLUTE AUTO 0.07 K/mm3 (0.00-0.10); IMMATURE GRAN PERCENT AUTO 1 % (0-1); LYMPHOCYTES ABSOLUTE AUTO 0.88 K/mm3 (0.84-5.20); LYMPHOCYTES PERCENT AUTO 7 % (21-46); MONOCYTES ABSOLUTE AUTO 0.99 K/mm3 (0.16-1.47); MONOCYTES PERCENT AUTO 8 % (4-13); Mean Corpuscular HGB 34.2 pg (26.0-34.0); Mean Corpuscular Volume 101 fL (80-100); Mean Platelet Volume 11.2 fL (9.1-12.4); NEUTROPHILS ABSOLUTE AUTO 9.85 K/mm3 (1.96-9.15); NEUTROPHILS PERCENT AUTO 82 % (41-73); Platelet Count 154 K/mm3 (150-400); RDW Coefficient Variation 13.1 % (11.7-14.2); RDW Standard Deviation 48.9 fL (35.1-46.3); Red Blood Cell Count 3.07 M/mm3 (3.80-5.20); White Blood Cell Count 12.05 K/mm3 (4.00-11.30)
[2023-06-04 05:51] LABS: International Normalized Ratio 1.91; Prothrombin Time Results 19.3 Sec (9.7-11.5)
[2023-06-04 06:16] LABS: Bun/Creatinine Ratio 24.7 (12.0-20.0); Calcium, Blood 8.8 mg/dL (8.5-10.1); Creatinine, Blood 0.69 mg/dL (0.40-1.00); Potassium, Blood 3.6 mmol/L (3.5-5.5)
[2023-06-04 07:46] VITALS: BP 128/75
[2023-06-04] MEDS ORDERED: AMOCLA875 PO (11:22)
[2023-06-04] MEDS ORDERED: Warfarin Sodium 3 MG Tab PO SCH (18:00)
== END 2023-06-04 11:53 | disposition home or self-care (01) | DRG 872 ==
LOC: ER 03:26 → MEDS 03:27 → ENPENDDIS 06-04 10:27 → MEDS 06-04 11:53
PROVIDERS: Emergency Medicine; Internal Medicine; ADMIT Family Medicine
DX: A41.51 Sepsis due to Escherichia coli [E. coli] (principal); I50.32 Chronic diastolic (congestive) heart failure; J96.11 Chronic respiratory failure with hypoxia; N30.01 Acute cystitis with hematuria; I11.0 Hypertensive heart disease with heart failure; F41.9 Anxiety disorder, unspecified; J44.9 Chronic obstructive pulmonary disease, unspecified; F10.90 Alcohol use, unspecified, uncomplicated; E78.5 Hyperlipidemia, unspecified; F32.A Depression, unspecified; I48.0 Paroxysmal atrial fibrillation; Z87.891 Personal history of nicotine dependence; Z88.8 Allergy status to other drugs, medicaments and biological substances; Z91.041 Radiographic dye allergy status; Z79.899 Other long term (current) drug therapy; Z79.01 Long term (current) use of anticoagulants; Z79.2 Long term (current) use of antibiotics; Z95.0 Presence of cardiac pacemaker; Z85.118 Personal history of other malignant neoplasm of bronchus and lung; Z90.710 Acquired absence of both cervix and uterus; Z98.890 Other specified postprocedural states; Z86.79 Personal history of other diseases of the circulatory system; Z11.52 Encounter for screening for COVID-19
CPT/HCPCS: 0241U; 36415; 51701; 71045; 80047; 80048; 80053; 81001; 83605; 83735; 84484; 85014; 85025; 85610; 85730; 87040; 87077; 87086; 87186; 93005; 93010; 94640; 94664; 94760; 96361; 96365; 96376; 97110; 97116; 97162; 97165; 97535; 99285-25; A9270; G0378; J0692; J7030; J7050

== ENCOUNTER 2024-12-18 14:39 | Emergency (ER) | payer MEDICARE ==
[~2024-12-18] VITALS: Ht 152.4 cm; Wt 61.2 kg
[~2024-12-18 14:39] MED LIST changes: +ALPR.25 PO; +AMOCLA875 PO; +Alphagan P5 ML BOTHEYES; +BUDESONIDE INH; +CYMBALTA30 M2 PO; +CYMBALTA60 M1 PO; +LATA.005SO BOTHEYES; +SPIRIVA RESPIMAT4 G3 INH; +WARF3 PO
[2024-12-18 15:22] LABS: Source, Urine Straight Cath
[2024-12-18 15:27] LABS: Bilirubin, Urine Neg (Neg); Color, Urine Yellow (P-Yellow); Glucose Qualitative, Urine Neg (Neg); Ketones, Urine Neg (Neg); Leukocyte Esterase, Urine Neg (Neg); Protein, Urine Neg (Neg); Specific Gravity, Urine 1.010 (1.003-1.022); Urobilinogen, Urine NORM (Normal)
[2024-12-18 15:30] LABS: BASOPHILS ABSOLUTE AUTO 0.05 K/mm3 (0.00-0.23); BASOPHILS PERCENT AUTO 1 % (0-2); EOSINOPHILS ABSOLUTE AUTO 0.07 K/mm3 (0.00-0.68); EOSINOPHILS PERCENT AUTO 1 % (0-6); Hematocrit 35.4 % (33.0-51.0); Hemoglobin 11.9 g/dL (11.5-16.0); IMMATURE GRAN ABSOLUTE AUTO 0.06 K/mm3 (0.00-0.10); IMMATURE GRAN PERCENT AUTO 1 % (0-1); LYMPHOCYTES ABSOLUTE AUTO 1.15 K/mm3 (0.84-5.20); LYMPHOCYTES PERCENT AUTO 11 % (21-46); MONOCYTES ABSOLUTE AUTO 0.92 K/mm3 (0.16-1.47); MONOCYTES PERCENT AUTO 9 % (4-13); Mean Corpuscular HGB Conc 33.6 g/dL (31.5-36.5); Mean Corpuscular Volume 101 fL (80-100); NEUTROPHILS ABSOLUTE AUTO 8.59 K/mm3 (1.96-9.15); NEUTROPHILS PERCENT AUTO 79 % (41-73); NRBC ABSOLUTE 0.00 K/mm3 (0.00-0.02); NRBC Auto 0.0 /100 WBC (0.0-0.2); Platelet Count 262 K/mm3 (150-400); RDW Coefficient Variation 13.8 % (11.7-14.2); RDW Standard Deviation 50.6 fL (35.1-46.3)
[2024-12-18 15:53] LABS: Alanine Aminotransfer (ALT/SGP 112.0 U/L (12-78); Albumin, Blood 3.8 g/dL (3.4-5.0); Albumin/Globulin Ratio 1.0 (0.8-1.8); Anion Gap 9.0 mmol/L (3-11); Aspartate Aminotrans (AST/SGOT 65.0 U/L (12-37); Bilirubin, Total 0.5 mg/dL (0.1-1.0); Blood Urea Nitrogen 31.0 mg/dL (8-24); CO2, Blood 30.0 mmol/L (21-32); Calcium, Blood 9.8 mg/dL (8.5-10.1); Chloride, Blood 103.0 mmol/L (98-108); Creatinine, Blood 1.06 mg/dL (0.40-1.00); Globulin, Blood 3.7 g/dL (2.2-4.0); Glucose, Blood 96.0 mg/dL (70-99); Potassium, Blood 4.3 mmol/L (3.5-5.5); Sodium, Blood 138.0 mmol/L (136-145); Total Protein, Blood 7.5 g/dL (6.4-8.2)
[2024-12-18] MEDS ORDERED: NS 1,000 ML IV SCH (17:50)
[2024-12-18 19:21] VITALS: BP 141/103
== END 2024-12-18 19:22 | disposition home or self-care (01) ==
LOC: ER 14:39
PROVIDERS: Student in an Organized Health Care Education/Training Program
DX: R07.89 Other chest pain (principal); J44.9 Chronic obstructive pulmonary disease, unspecified; F41.9 Anxiety disorder, unspecified; E78.5 Hyperlipidemia, unspecified; I10 Essential (primary) hypertension; F32.A Depression, unspecified; I44.2 Atrioventricular block, complete; Z87.891 Personal history of nicotine dependence; Z95.0 Presence of cardiac pacemaker; Z88.8 Allergy status to other drugs, medicaments and biological substances; Z91.041 Radiographic dye allergy status; Z79.899 Other long term (current) drug therapy; Z79.01 Long term (current) use of anticoagulants
CPT/HCPCS: 71045; 80053; 81003; 83880; 84484; 85025; 93005; 93010; 99285-25; J7030

== ENCOUNTER 2024-12-20 16:52 | Emergency (ER) | payer MEDICARE ==
[~2024-12-20] VITALS: Ht 157.5 cm; Wt 65.8 kg
[2024-12-20] MEDS ORDERED: Ipratropium/Albuterol SulF 2.5-0.5MG/3 ML Amp INH ONE ×2 (17:25→20:40)
[2024-12-20 17:27] LABS: BASOPHILS ABSOLUTE AUTO 0.02 K/mm3 (0.00-0.23); BASOPHILS PERCENT AUTO 0 % (0-2); EOSINOPHILS ABSOLUTE AUTO 0.14 K/mm3 (0.00-0.68); EOSINOPHILS PERCENT AUTO 2 % (0-6); Hematocrit 34.8 % (33.0-51.0); Hemoglobin 11.5 g/dL (11.5-16.0); IMMATURE GRAN ABSOLUTE AUTO 0.04 K/mm3 (0.00-0.10); IMMATURE GRAN PERCENT AUTO 1 % (0-1); LYMPHOCYTES ABSOLUTE AUTO 1.44 K/mm3 (0.84-5.20); LYMPHOCYTES PERCENT AUTO 18 % (21-46); MONOCYTES ABSOLUTE AUTO 0.83 K/mm3 (0.16-1.47); MONOCYTES PERCENT AUTO 10 % (4-13); Mean Corpuscular HGB Conc 33.0 g/dL (31.5-36.5); Mean Corpuscular Volume 103 fL (80-100); NEUTROPHILS ABSOLUTE AUTO 5.75 K/mm3 (1.96-9.15); NEUTROPHILS PERCENT AUTO 70 % (41-73); NRBC ABSOLUTE 0.00 K/mm3 (0.00-0.02); NRBC Auto 0.0 /100 WBC (0.0-0.2); Platelet Count 238 K/mm3 (150-400); RDW Coefficient Variation 14.1 % (11.7-14.2); RDW Standard Deviation 52.5 fL (35.1-46.3)
[2024-12-20 17:43] LABS: Prothrombin Time Results 27.1 Sec (9.7-11.5)
[2024-12-20 17:52] LABS: Anion Gap 6.0 mmol/L (3-11); Blood Urea Nitrogen 28.0 mg/dL (8-24); CO2, Blood 30.0 mmol/L (21-32); Calcium, Blood 9.4 mg/dL (8.5-10.1); Chloride, Blood 105.0 mmol/L (98-108); Creatinine, Blood 0.94 mg/dL (0.40-1.00); Glucose, Blood 84.0 mg/dL (70-99); Potassium, Blood 4.3 mmol/L (3.5-5.5); Sodium, Blood 137.0 mmol/L (136-145)
[2024-12-20 20:55] LABS: pH Blood Venous 7.30 (7.34-7.37)
[2024-12-20] MEDS ORDERED: PRED20 PO (22:24)
[2024-12-20 22:30] VITALS: BP 121/83
== END 2024-12-20 22:42 | disposition home or self-care (01) ==
LOC: ER 16:52
PROVIDERS: Student in an Organized Health Care Education/Training Program
DX: J44.1 Chronic obstructive pulmonary disease with (acute) exacerbation (principal); R07.89 Other chest pain; I10 Essential (primary) hypertension; Z91.041 Radiographic dye allergy status; Z79.899 Other long term (current) drug therapy; Z79.01 Long term (current) use of anticoagulants; Z95.0 Presence of cardiac pacemaker; Z87.891 Personal history of nicotine dependence
CPT/HCPCS: 71046; 80048; 82803; 83880; 84484; 85025; 85610; 93005; 93010; 96374; 99285-25; J2919